=== PATIENT | male | born 1975 | race African-American/Black ===

== ENCOUNTER 2021-02-08 14:02 | Emergency (ER) | payer MEDICARE, MEDICAID ==
[2021-02-08 14:52] LABS: #Basophils 0.1 thou/uL (0.0-0.2); #Eosinphils 0.1 thou/uL (0.0-0.7); #Lymphocytes 1.9 thou/uL (1.20-3.40); #Monocytes 0.6 thou/uL (0.11-0.59); #Neutrophils 3.7 thou/uL (1.40-6.50); %Basophils 1.2 % (0.0-1.0); %Eosinophils 1.5 % (0.0-10.0); %Lymphocytes 29.9 % (21.0-51.0); %Monocytes 8.8 % (0.0-10.0); %Neutrophils 58.6 % (42.0-75.0); Mean Corpuscular HGB CONC 34.4 g/dL (32.0-36.0); Mean Corpuscular Hemoglobin 35.5 pg (27.0-31.0); Mean Platelet Volume 6.3 fL (7.4-10.4); Platelet Count 329 thou/uL (130-400); RBC Distribution Width 14.3 % (11.5-14.5); Red Blood Cell (RBC) Count 3.11 mill/uL (4.70-6.10); White Blood Cell (WBC) Count 6.3 thou/uL (4.8-10.8)
[2021-02-08 15:08] LABS: ALT (SGPT) 15 U/L (8-55); AST (SGOT) 11 U/L (5-34); Albumin 4.1 g/dL (3.5-5.0); Alkaline Phosphatase 62 U/L (40-110); Anion Gap 17 mmol/L (10-20); BUN (Urea Nitrogen) 22 mg/dL (8.9-20.6); Bilirubin, Total 0.3 mg/dL (0.2-1.2); Calc. Creatinine Clearance 0 mL/min (70-130); Calcium 9.3 mg/dL (7.8-10.44); Carbon Dioxide 25 mmol/L (22-29); Chloride 99 mmol/L (98-107); Globulin 2.4 g/dL (2.4-3.5); Glucose 108 mg/dL (70-105); Lipase 23 U/L (8-78); Potassium 3.9 mmol/L (3.5-5.1); Protein, Total 6.5 g/dL (6.0-8.3); Sodium 137 mmol/L (136-145)
[2021-02-08 15:21] LABS: Acetaminophen Less than 6.0 mcg/mL (10.0-30.0); Alcohol Less than 10 mg/dL (Less than 10); CK (CPK) 180 U/L (30-200); Salicylate Less than 8.0 mg/dL (15.0-30.0)
[2021-02-08] MEDS ORDERED: Ziprasidone 20 MG VIAL ONE (15:29)
[2021-02-08] MEDS ORDERED: Sterile Water 10 ML ONE (15:29)
[2021-02-08 15:43] LABS: CKMB 0.8 ng/mL (0-6.6)
== END 2021-02-08 18:31 | disposition home or self-care (01) ==
LOC: EDBD 14:02 → ERS 14:02
DX: F23 Brief psychotic disorder (principal); E11.9 Type 2 diabetes mellitus without complications; I10 Essential (primary) hypertension; E78.00 Pure hypercholesterolemia, unspecified; F17.210 Nicotine dependence, cigarettes, uncomplicated
CPT/HCPCS: 36415; 70450; 71045; 80053; 80307; 82140; 82550; 82553; 83690; 84443; 84484; 85025; 93005; 96372; J3486

== ENCOUNTER 2021-02-12 09:18 | Emergency (ER) | payer MEDICARE, OTHER | END 2021-02-12 09:50 | LOC: ERS 09:18 | DX: Z02.89 Encounter for other administrative examinations (principal); I10 Essential (primary) hypertension; E78.00 Pure hypercholesterolemia, unspecified; E11.9 Type 2 diabetes mellitus without complications; F17.210 Nicotine dependence, cigarettes, uncomplicated | CPT/HCPCS: 99283 ==